=== PATIENT | female | born 1980 | race African-American/Black ===

== ENCOUNTER 2017-03-30 07:25 | Inpatient (IN) ==
--- NOTE | 2017-03-27 20:22 | Discharge Summary ---
<Anabell Singh - Last Filed: 03/27/17 20:20> Date of Encounter: 03/27/17 - Discharge Diagnosis (1) Arthritis of knee, right Priority: Primary Status: Acute (2) Chronic pain Priority: Secondary Status: Chronic Comments: Continue Suboxone. Qualifiers: Chronic pain type: other chronic pain (3) Asthma Priority: Secondary Status: Chronic - Discharge Medications Home Medications: Albuterol Sulfate [Albuterol Inhaler] 1 puff IH QID PRN #1 puff 12/12/15 [Rx] Albuterol Neb [Proventil Neb] 2.5 mg IH TID PRN 10/14/16 [History] Buprenorphine HCl/Naloxone HCl [Suboxone 8 mg-2 mg Sl Film] 1 each SL BID [History] Etonogestrel [Nexplanon] 68 mg SQ ONCE 10/14/16 [History] Aspirin Enteric Coated [Aspirin EC] 325 mg PO DAILY #21 tablet. 03/27/17 [Rx] Meloxicam [Mobic] 15 mg PO DAILY #30 tablet 03/27/17 [Rx] Allergies/Adverse Reactions: Allergies No Known Allergies Allergy (Verified 03/30/17 08:22) Primary care physician: PCP NO - Patient Status Disposition: Home, Self-Care Condition: Good - Discharge Instructions Follow Up With: ROSMERY,PCP [Primary Care Provider] - Additional Instructions: Follow-up appointments: If there is not an appointment listed below, please call your physician and schedule a follow-up appointment. If you have congestive heart failure and your symptoms return, make an appointment with your physician. Medication List: Carry an up to date list of medications you are taking at all time. We have given you an updated medication list including any new medications that you have been prescribed. Please provide that list to your primary provider Symptoms: If your condition changes or you experience any of the following symptoms, notify your physician immediately: Unusual or worsening pain, fever, persistent nausea and vomiting, bleeding, increase in swelling (especially in your legs), sudden weight gain, extreme dizziness, chest pain, increased drainage or redness from a wound or incision. Go to the emergency department if you experience a problem with breathing. Weights: If you have a history of swelling or shortness of breath, weigh yourself daily and notify your physician if you have a weight gain of two or more pounds in one day or 5 or more pounds in a week. If you experience any of the warning signs for stroke: Sudden numbness or weakness of the face, arm or leg; especially on one side of the body, sudden confusion, trouble speaking or understanding, sudden trouble seeing in one or both eyes, sudden trouble walking, dizziness, loss of balance or coordination, sudden sever headache with no cause; Call 911 or go to the emergency room. Stroke is a medical emergency. Some risk factors for stroke: Age, cigarette smoking, diabetes, excessive alcohol consumption, family history , high blood pressure, overweight, physical inactivity, prior stroke, heart attack, diagnosis of carotid artery stenosis or other artery disease. If you smoke, STOP: Smoking or tobacco use significantly increases your risk of heart and lung disease. Your chance of disease greatly increases if you continue to smoke. For more information, call the [place] quit line for smoking cessation 6-- QUIT-NOW ( ) - Hospital Course Hospital course: Ms. Echeverria is a 37 year old female - Time Spent with Patient Total time spent providing and/or coordinating discharge services: <Ubaldo Blanco - Last Filed: 03/31/17 08:08> Date of Encounter: 03/31/17 Time of Encounter: 08:07 - Discharge Diagnosis (1) Arthritis of knee, right Priority: Primary Status: Acute (2) Chronic pain Priority: Secondary Status: Chronic Qualifiers: Chronic pain type: other chronic pain Qualified Code(s): G89.29 - Other chronic pain (3) Asthma Priority: Secondary Status: Chronic Qualifiers: Asthma severity: unspecified severity Asthma complication type: uncomplicated Primary care physician: PCP NO - Patient Status Functional capacity at discharge: uses cane/walker Overall status at discharge: patient is progressing back to baseline - Hospital Course Hospital course: Ms. Echeverria is a 37 year old female The patient had an uneventful postoperative course. They received antibiotics and physical therapy and were discharged in stable condition. There will follow -up in the office in 2 weeks. Aspirin DVT prophylaxis - Time Spent with Patient Total time spent providing and/or coordinating discharge services:
--- NOTE | 2017-03-30 08:11 | History & Physical Report ---
Date of Encounter: 03/30/17 Time of Encounter: 08:11 24 Hour HP Update - Instructions Instructions: If the History and Physical is less than 30 days old and was completed prior to A.M. admission and or procedure and has NOT been updated on calendar day of procedure please complete this update prior to performing procedure. - Update Patient reports changes in Medical Condition: No Changes in examination, assessment, or condition: No Changes in Medication: No Preop tests/diagnostics Reviewed: Yes Surgery Remains Indicated: Yes Consent for Planned Operative Procedure(s) Verified: Yes - Pre-Operative Checklist Preoperative Checklist Indicated: No Prophylactic Antibiotic Ordered: Yes Is VTE Prophylaxis Indicated?: Yes
[2017-03-30] MEDS ORDERED: Dexamethasone 4 MG/ML VIAL ONE ×2 (08:27→09:12)
[2017-03-30] MEDS ORDERED: Ondansetron 4 MG/2 ML VIAL ONE (08:27)
[2017-03-30] MEDS ORDERED: *HR* Propofol 200 MG/20 ML VIAL IVP ONE (08:27)
[2017-03-30] MEDS ORDERED: *HR* HYDROmorphone 2 MG/ML SYRINGE ONE (08:27)
[2017-03-30] MEDS ORDERED: *HR* Midazolam HCl 2 MG/2 ML VIAL ONE (08:27)
[2017-03-30] MEDS ORDERED: Lidocaine -MPF 2% 2 ML VIAL ONE (08:27)
[2017-03-30] MEDS ORDERED: *HR* FentaNYL (PF) 100 MCG/2 ML VIAL ONE (08:32)
[2017-03-30] MEDS ORDERED: CeFAZolin Pre 2,000 MG/100 ML 2,000 MG/100 ML BAG IVPB ONE (08:33)
[2017-03-30] MEDS ORDERED: Albuterol 2.5 MG/3 ML NEBULIZER IH ONE (08:33)
[2017-03-30] MEDS ORDERED: Ringers Solution, Lactated 1,000 ML IVC SCH (08:45)
--- NOTE | 2017-03-30 08:48 | Anesthesia Evaluation PreOp ---
Date of Encounter: 03/30/17 Time of Encounter: 08:46 - Past History Planned Operation: R total knee arthoplasty Cardiac History: [place] (when taking cocaine in 2005 - doesn't use cocaine anymore and no stents in his heart) Pulmonary History: Asthma ROLL SKINNER History: Denies Any Significant HX Other Medical History: Hepatic (Hep C in past - patient has cleared infection and she is no longer hep C positive), Other (opioid addiction - no subutex today ) Anesthesia History: No Prior Anesthetic Complications Alcohol Use: none Drug use: cocaine Medications and Allergies Albuterol Sulfate [Albuterol Inhaler] 1 puff IH QID PRN #1 puff 12/12/15 [Rx] Albuterol Neb [Proventil Neb] 2.5 mg IH TID PRN 10/14/16 [History] Buprenorphine HCl/Naloxone HCl [Suboxone 8 mg-2 mg Sl Film] 1 each SL BID [History] Etonogestrel [Nexplanon] 68 mg SQ ONCE 10/14/16 [History] Aspirin Enteric Coated [Aspirin EC] 325 mg PO DAILY #21 tablet. 03/27/17 [Rx] Meloxicam [Mobic] 15 mg PO DAILY #30 tablet 03/27/17 [Rx] Allergies No Known Allergies Allergy (Verified 03/30/17 08:22) - Meds/Allergy Pre-op Review Medications Reviewed: Yes Allergies Reviewed: Yes Beta Blockers on Current Med List: No Anesthesia Results - Labs Laboratory Tests 11/25/14 03/23/17 03/23/17 16:03 08:39 08:39 WBC Hgb Hct Plt Count PT 11.0 INR 1.0 APTT 30.9 Sodium 140 Potassium 3.8 Chloride 105 Carbon Dioxide 27 BUN 13 Creatinine 0.80 Est GFR ( Amer) > 60 Est GFR (Non-Af Amer) > 60 BUN/Creatinine Ratio 16 Serum , Qual Hepatitis C RNA Quant Undetected 03/23/17 03/23/17 08:39 08:39 WBC 4.3 Hgb 11.6 Hct 35.6 Plt Count 211 PT INR APTT Sodium Potassium Chloride Carbon Dioxide BUN Creatinine Est GFR ( Amer) Est GFR (Non-Af Amer) BUN/Creatinine Ratio Serum , Qual Negative Hepatitis C RNA Quant - Imaging EKG: report reviewed, image reviewed Anesthesia Exam Last Vital Signs Temp 98.2 F 03/30/17 08:15 Pulse 81 03/30/17 08:15 Resp 18 03/30/17 08:15 BP 97/65 03/30/17 08:15 Pulse Ox 97 03/30/17 08:15 Weight: 84 kg - HEENT Pupil (Motor): Pupils equal, EOMI Mallampati: III Teeth: Normal Oral Opening: Greater than 3 - ROLL SKINNER LOC: Oriented ROLL SKINNER Motor: Normal RUE, Normal LUE, Normal RLE, Normal LLE, Normal Face - Cardiac Rhythm: Regular Murmur: None - Pulmonary Breath Sounds: bilateral Clear Respiratory Effort: Symmetrical Anesthesia Assess/Plan ASA Score: 2 Modified [place] Scale for Level of Consciousness: Cooperative, oriented, and tranquil Anesthetic Plan: General, Regional Monitoring Plan: Standard Monitors Recovery Plan: PACU
[2017-03-30] MEDS ORDERED: ROPIVACAINE HCL/PF 0.5% 30 ML VIAL ONE (09:11)
[2017-03-30] MEDS ORDERED: Bupivacaine/Clonidine Syringe 1 EACH SYRINGE ONE (09:11)
[2017-03-30] MEDS ORDERED: Ondansetron 4 MG/2 ML VIAL IVP PRN ×2 (09:38→11:50)
[2017-03-30] MEDS ORDERED: Naloxone 0.4 MG/ML INJ IVP PRN ×2 (09:38→11:50)
[2017-03-30] MEDS ORDERED: *HR* Meperidine 25 MG/ML SYRINGE IVP PRN (09:38)
[2017-03-30] MEDS ORDERED: *HR* Promethazine 25 MG/ML VIAL IVP PRN (09:38)
--- NOTE | 2017-03-30 09:42 | Anesthesia Procedures ---
Date of Encounter: 03/30/17 Time of Encounter: 09:30 Procedures: Anesthesia - Nerve Block Procedure Date: 03/30/17 Time: 09:30 Allergies/Adv Reactions: Allergies Allergy/AdvReac Type Severity Reaction Status Date / Time No Known Allergies Allergy Verified 03/30/17 08:22 Pre-op Diagnosis: Right Knee arthritis Surgical Procedure: Right TKA Checklist: Correct Patient Identifier, Correct procedure, History checked Correct side: Right Blood Thinner: No Monitor Applied: EKG, BP, Pulse Oximetry Supplemental Oxygen via Nasal Cannula (L/min): 2 Sedation: Versed (mg): 2 Sedation: Fentanyl (mcg): 100 Indication: Post Op Analgesia Pre-op Neuro Deficits: No Block Type: Femoral, Other (Posterior Compartment) Catheter placed: No Sterile Technique: Yes Ultrasound used: Yes Anatomy identified: Yes Visual spread of Local: Yes Neuro Stimulation: Yes Nerve Stimulator Range: 0.2 - 0.4 mA Blood on Needle Aspiration: No Smooth Injection of Local: Yes Pain with Injection of Local: No Prep: Chlorhexadine Needle: 22 x 50 mm Stimuplex (Femoral), 21 x 100 mm Stimuplex (Posterior Compartment) Local: 0.25% Bupivicaine w/Clonidine 20 mcg/cc (20mL Posterior), Ropivacaine ( 0.5% 30mL with Decadron 8mg Femoral) Volume (cc): 50 Number of Attempts: 1 Complications: None/effective block Vitals: VSS throughout. See nursing documentation. Comments: Verbal order Dr Blanco for post op pain management. Patient tolerated procedure well.
--- NOTE | 2017-03-30 10:34 | Orthopedic Operative Note ---
Date of procedure: 03/30/17 Pre-op diagnosis: Right knee arthritis Post-op diagnosis: same Procedure: Procedure: Right Total knee replacement Estimated blood loss: 200 cc Hardware: Metal and polyethylene replacement. Arthrex Femur: 4 Tibia: 4 PS insert: 14 Patella: 34 Exam Under anesthesia: Full flexion and extension no instability Procedural Notes: Grade 4 arthritic changes medial compartment grade 3 arthritic changes patellofemoral joint. Operative procedure: The patient was brought to the operating room and placed on the operating room table. After general anesthesia was administered the operative knee was examined. Findings were noted in the exam under anesthesia. The operative extremity was prepped and draped in sterile surgical fashion. The patient received IV antibiotics prior to skin incision. A standard midline incision was made centered over the patella. The incision was made through the skin and subcutaneous tissue. A medial parapatellar tendon approach was performed. Care was taken to preserve tissue along the medial aspect of the patella. And to protect the patella tendon. The deep MCL was released off the medial tibia. The infra patella fat pad was excised. Knee was brought into flexion. Patient noted to have grade 4 arthritic changes medial compartment grade 3 arthritic changes patellofemoral joint. The entry hole was made for the intramedullary femoral guide. The guide was seated in 6 degrees of valgus. Anterior cut was made followed by the distal cut. The ACL the PCL the medial and the lateral menisci were excised. The tibia was subluxed forward. The entry hole was made for the intramedullary tibial guide. Guide was seated to resect 2 mm off the more abnormal side. The knee was brought into flexion the distal femur was sized to a 4. The femoral guide was seated, the anterior cut was made followed by the posterior condylar cut, followed by the chamfer cuts. The finishing guide was seated the box cut was made and the lug holes were drilled. The tibia was sized to a 4, the tibial tray was seated and prepared with the large drill followed by the fin cutter. Trial reduction revealed full extension no varus valgus instability with the appropriate 14 PS Trixie. The patella was everted and cut was made at the level of the insertion of the quadriceps and patella tendon. The patella was sized to a 34 the guide was seated and the lug holes are drilled. Trial reduction revealed excellent patella tracking. All trial components were removed all bony surfaces were irrigated. The tibia was cemented first followed by the femur. The 14 PS Trixie was seated and the knee was brought into full extension. The patella was cemented and held in place with the patellar holding clamp. After the cement had hardened, the knee sat for 2 minutes with a Betadine saline solution. The knee was then irrigated out with 2 L of pulse irrigation. The extensor mechanism was closed with #2 FiberWire suture and #2 PDS suture. The subcutaneous tissue was then irrigated and closed deep with #1 PDS suture superficially with 0 PDS suture and skin was closed with skin candi. The patient was then placed in a sterile dressing and a postoperative brace extubated and transferred to recovery room in stable condition. Anesthesia: AMALIA Surgeon: Ubaldo Blanco [employer] Counter Clerk: Anabell Singh Condition: stable Disposition: PACU
[2017-03-30] MEDS ORDERED: Ketorolac 30 MG/ML VIAL ONE (11:03)
[2017-03-30] MEDS: *HR* HYDROmorphone (PF) 1 MG/ML SYRINGE IVP PRN ×2 (11:06→11:11)
[2017-03-30 11:39] LABS: Hematocrit 33.1 % (35.3-44.9); Hemoglobin 10.6 g/dL (11.5-15.4)
[2017-03-30] MEDS ORDERED: Sennosides 8.6 MG TABLET PO PRN (11:50)
[2017-03-30] MEDS ORDERED: ETONOGESTREL 68 MG SQ SCH (11:50)
[2017-03-30] MEDS ORDERED: MOM Conc 10 ML UD.LIQ PO PRN (11:50)
[2017-03-30] MEDS ORDERED: Temazepam 15 MG CAPSULE PO PRN (11:50)
[2017-03-30] MEDS ORDERED: Albuterol 2.5 MG/3 ML NEBULIZER IH PRN (11:50)
[2017-03-30] MEDS: Ketorolac 30 MG/ML VIAL IVP PRN ×2 (12:15→20:08)
--- NOTE | 2017-03-30 12:20 | Anesthesia Evaluation Post Op ---
Date of Encounter: 03/30/17 Time of Encounter: 12:10 - Vital Signs Vital Signs: Last Vital Signs Temp 98.4 F 03/30/17 12:08 Pulse 64 03/30/17 12:08 Resp 14 03/30/17 12:08 BP 138/94 03/30/17 12:08 Pulse Ox 99 03/30/17 12:08 - Lungs Lungs: Clear Ascult./Percussion - Airway Airway: Non-obstructed - Cardiovascular Regular Rate - Mental Status Mental Status: Alert & Oriented, Answers Appropriately - Pain Pain Scale: 5 - Nausea Vomiting Nausea Vomiting: Not Present - Hydration Hydration: NPO - Discharge PostOp Status: Transfer Patient to floor
[2017-03-30] MEDS: (Buprenorphine Hcl/Naloxone Hcl [Suboxone 8 Mg-2 Mg SL) SL SCH ×2 (12:23→21:08)
[2017-03-30] MEDS: Acetaminophen IV 1,000 MG/100 ML INFUS..BTL IVPB SCH ×2 (12:37→17:50)
[2017-03-30] MEDS: ceFAZolin 2,000 MG in D5% in Water 100 ML IVPB SCH (16:23)
[2017-03-30] MEDS: *HR* Enoxaparin 30 MG/0.3 ML SYRINGE SQ SCH (17:50)
[2017-03-30] MEDS ORDERED: *HR* Enoxaparin 30 MG/0.3 ML SYRINGE SQ SCH (18:00)
[2017-03-30] MEDS: Ringers Solution, Lactated 1,000 ML IVC SCH (21:01)
[2017-03-31] MEDS: Acetaminophen IV 1,000 MG/100 ML INFUS..BTL IVPB SCH ×3 (00:20→12:13)
[2017-03-31] MEDS: ceFAZolin 2,000 MG in D5% in Water 100 ML IVPB SCH (00:23)
[2017-03-31] MEDS: Ketorolac 30 MG/ML VIAL IVP PRN (02:18)
[2017-03-31 05:05] LABS: Hematocrit 31.7 % (35.3-44.9); Hemoglobin 10.9 g/dL (11.5-15.4)
[2017-03-31 05:09] LABS: BUN/Creatinine Ratio 12 (6-26); Blood Urea Nitrogen 8 mg/dL (7-20); Calcium 8.7 mg/dL (8.6-10.8); Carbon Dioxide 22 mEq/L (19-29); Chloride 106 mEq/L (98-109); Glucose 125 mg/dL (70-99); Osmolality,Calculated 286 (280-300); Potassium 4.1 mEq/L (3.5-4.5); Sodium 138 mEq/L (136-145); eGFR For African Americans > 60 (> 60); eGFR For Non-African Americans > 60 (> 60)
[2017-03-31] MEDS: *HR* Enoxaparin 30 MG/0.3 ML SYRINGE SQ SCH (05:29)
--- NOTE | 2017-03-31 08:06 | Orthopedics Progress Note ---
Date of Encounter: 03/31/17 Time of Encounter: 08:05 - Assessment and Plan (1) Arthritis of knee, right Current Visit: No Status: Acute (2) Chronic pain Current Visit: No Status: Chronic Qualifiers: Chronic pain type: other chronic pain Qualified Code(s): G89.29 - Other chronic pain (3) Asthma Current Visit: No Status: Chronic Qualifiers: Asthma severity: unspecified severity Asthma complication type: uncomplicated Qualified Code(s): J45.909 - Unspecified asthma, uncomplicated Subjective Interval history: Patient was seen this morning doing well without complaints. Afebrile vital signs stable. Operative extremity: Neurovascularly intact Dressing clean dry and intact Calves nontender Assessment and plan: Continue with postoperative care Hematocrit 31 discharged today Objective Vital signs: Vital Signs Temp Pulse Resp BP Pulse Ox 03/31/17 07:18 98.7 F 60 14 131/67 98 03/31/17 04:27 99.0 F 66 16 129/79 96 03/31/17 00:14 99.0 F 69 16 109/75 98 03/30/17 20:28 99.0 F 66 18 135/81 96 03/30/17 14:53 98.3 F 99 12 128/78 98 03/30/17 13:47 97.9 F 71 14 118/79 95 03/30/17 12:44 98.0 F 62 14 131/87 98 03/30/17 12:08 98.4 F 64 14 138/94 99 03/30/17 11:51 98 03/30/17 11:50 98.1 F 62 12 126/83 98 03/30/17 11:31 64 16 129/86 98 03/30/17 11:20 60 18 136/78 99 03/30/17 11:10 60 18 116/72 96 03/30/17 11:00 97.8 F 77 18 118/79 100 03/30/17 09:20 89 110/66 97 03/30/17 08:58 98.2 F 81 18 97/65 97 03/30/17 08:15 98.2 F 81 18 97/65 97 Intake and Output 03/30/17 03/31/17 03/31/17 23:59 07:59 15:59 Intake Total 200 / 200 200 / 200 Output Total 575 / 575 Balance 200 / 200 -375 / -375 Intake: IV Fluids 200 / 200 200 / 200 Lactated Ringers 1,000 ML 0 / 0 @ 75 mls/hr IVC .[id number] MONIKA Rx#:[id number] Ofirmev 1,000 mg/100 ml 1 100 / 100 200 / 200 ,000 mg In 100 ml @ 400 mls/hr IVPB Q6H MONIKA Rx#: [id number] Ancef 2,000 MG In 100 / 100 Dextrose 5% 100 ML @ 200 mls/hr IVPB Q8HR MONIKA Rx#: [id number] Output: Urine 575 / 575 Other: # Voids 2 - Labs CBC & BMP: 03/31/17 04:48 03/31/17 04:48 Labs: Abnormal lab results Hgb 10.9 g/dL (11.5-15.4) L 03/31/17 04:48 Hct 31.7 % (35.3-44.9) L 03/31/17 04:48 Glucose 125 mg/dL (70-99) H 03/31/17 04:48 - VTE Documentation of Mechanical Device: Venous foot pump, device Consult Discharge Plan - Plan Additional Instructions: Follow-up appointments: If there is not an appointment listed below, please call your physician and schedule a follow-up appointment. If you have congestive heart failure and your symptoms return, make an appointment with your physician. Medication List: Carry an up to date list of medications you are taking at all time. We have given you an updated medication list including any new medications that you have been prescribed. Please provide that list to your primary provider Symptoms: If your condition changes or you experience any of the following symptoms, notify your physician immediately: Unusual or worsening pain, fever, persistent nausea and vomiting, bleeding, increase in swelling (especially in your legs), sudden weight gain, extreme dizziness, chest pain, increased drainage or redness from a wound or incision. Go to the emergency department if you experience a problem with breathing. Weights: If you have a history of swelling or shortness of breath, weigh yourself daily and notify your physician if you have a weight gain of two or more pounds in one day or 5 or more pounds in a week. If you experience any of the warning signs for stroke: Sudden numbness or weakness of the face, arm or leg; especially on one side of the body, sudden confusion, trouble speaking or understanding, sudden trouble seeing in one or both eyes, sudden trouble walking, dizziness, loss of balance or coordination, sudden sever headache with no cause; Call 911 or go to the emergency room. Stroke is a medical emergency. Some risk factors for stroke: Age, cigarette smoking, diabetes, excessive alcohol consumption, family history , high blood pressure, overweight, physical inactivity, prior stroke, heart attack, diagnosis of carotid artery stenosis or other artery disease. If you smoke, STOP: Smoking or tobacco use significantly increases your risk of heart and lung disease. Your chance of disease greatly increases if you continue to smoke. For more information, call the [place] tobacco quit line for smoking cessation QUIT-NOW ( ) Referrals: NO,PCP [Primary Care Provider] -
[2017-03-31] MEDS: (Buprenorphine Hcl/Naloxone Hcl [Suboxone 8 Mg-2 Mg SL) SL SCH (08:29)
[2017-03-31] MEDS: Ringers Solution, Lactated 1,000 ML IVC SCH (08:31)
[2017-03-31] MEDS ORDERED: Acetaminophen 325 MG TABLET PO PRN (09:04)
[2017-03-31 11:49] VITALS: BP 154/67
== END 2017-03-31 12:51 | disposition home or self-care (01) | DRG 302 ==
LOC: SAMDAY 07:25 → 3NENU 11:48
PROVIDERS: ADMIT Orthopaedic Surgery; ATTEND Orthopaedic Surgery

== ENCOUNTER 2017-09-03 07:24 | Observation (INO) ==
[2017-09-03] MEDS ORDERED: Ketorolac 15 MG/ML VIAL IVP ONE (08:11)
[2017-09-03] MEDS ORDERED: 0.9 % Sodium Chloride 1,000 ML IVC ONE (08:11)
--- NOTE | 2017-09-03 08:13 | Emergency Department Note ---
Disposition Clinical Impression: Cellulitis, Abscess, Knee effusion Disposition: Admitted As Inpatient Condition: Good General Adult HPI - General Chief complaint: ED Extremity Problem,Nontraumatic Stated complaint: Right Knee problem Time Seen by Provider: 09/03/17 07:36 Source: patient Limitations: no limitations Nursing Notes Reviewed: Yes Vital Signs Reviewed: Yes - History of Present Illness Pain Scale: 10 - Related Data Home Medications Medication Instructions Recorded Confirmed Buprenorphine HCl/Naloxone HCl 1.5 film SL DAILY 10/14/16 09/03/17 [Suboxone 8 mg-2 mg Sl Film] Gabapentin [Neurontin] 600 mg PO TID 09/03/17 09/03/17 Naproxen Sodium [Aleve] 440 mg PO BID 09/03/17 09/03/17 Previous Rx's Medication Instructions Recorded Meloxicam [Mobic] 15 mg PO DAILY #30 tablet 03/27/17 Allergies Allergy/AdvReac Type Severity Reaction Status Date / Time No Known Allergies Allergy Verified 09/03/17 07:39 Past Medical History - Past Medical History Medical history: Reports: asthma, myocardial infarction Psychiatric history: Reports: no psych history - Social History Smoking Status: Never smoker Smokeless Tobacco Status: No Alcohol use: Reports: none Drug use: Reports: other Physical Exam - General Limitations: no limitations General appearance: alert, in no apparent distress Course Vital Signs Temperature 97.7 F 09/03/17 07:33 Pulse Rate 85 09/03/17 07:33 Respiratory Rate 18 09/03/17 07:33 Blood Pressure 127/70 09/03/17 07:33 O2 Sat by Pulse Oximetry 95 09/03/17 07:33 Temperature 97.6 F 09/03/17 12:29 Pulse Rate 77 09/03/17 12:29 Respiratory Rate 18 09/03/17 12:29 Blood Pressure 103/73 09/03/17 12:29 O2 Sat by Pulse Oximetry 97 09/03/17 12:29 Oxygen Delivery Oxygen Delivery Room Air Medical Decision Making - MDM Narrative Medical decision making narrative: I examined this patient and my medical decision-making was reviewed with the Resident Physician. I agree with the documented findings, disposition and treatment plan as described except to the extent set forth below. Patient was seen and evaluated by myself and Dr. Rodriguez, I agree with his evaluation and management plan, supervised the care of the patient's stay. Patient has pain in her right knee she had a replacement on this done in March that went well this was done by Dr. Blanco here. Now there is a warm and tender. She is former IV drug user. Is now on Suboxone. Worried that this area could be a cellulitis or the joint itself could be infected were going to get x-rays lab work and then we will speak with Dr. Blanco. She is in agreement with plan. Knee X-Ray 09/03/17 08:00 IMPRESSION: Right total knee arthroplasty without acute osseous abnormality. Small joint effusion and mild subcutaneous edema, nonspecific. D/ / Funmilayo Rosales MD / Funmilayo Rosales MD Interpreting Provider: Funmilayo Rosales MD Knee X-Ray 09/03/17 08:00 IMPRESSION: Right total knee arthroplasty without acute osseous abnormality. Small joint effusion and mild subcutaneous edema, nonspecific. D/ / Funmilayo Rosales MD / Funmilayo Rosales MD Interpreting Provider: Funmilayo Rosales MD Knee CT 09/03/17 08:59 IMPRESSION: Knee arthroplasty with moderate suprapatellar effusion. Infection of suprapatellar effusion cannot be determined by imaging alone. Subcutaneous soft tissue edema of the anterior knee extending to proximal anterior calf, nonspecific though this is compatible with cellulitis in the appropriate clinical setting. To a lesser degree there is also subcutaneous soft tissue edema of the posterior knee and posterior calf. 2 loculated fluid collections deep to the superficial muscular fascia in the medial calf, potentially a communication, the largest measuring up to 3.6 cm. These are concerning for possible abscess. D/ / 09/03/2017 10:14:33 Errol Morgan MD / jose Interpreting Provider: Errol Morgan MD 1000 hrs.: Spoke with orthopedics and they recommend bringing her in to the medicine service and they will consult and IV antibiotics are started. She is in agreement with plan. - Lab Data Result diagrams: 09/03/17 08:35 09/03/17 08:35 Lab Results 09/03/17 09/03/17 09/03/17 Range/Units 08:35 08:35 08:35 WBC 5.1 (4.3-11.1) K/mcL RBC 4.70 (3.82-4.97) M/mcL Hgb 13.1 (11.5-15.4) g/dL Hct 39.3 (35.3-44.9) % MCV 83.6 (83.0-100.0) fL MCH 27.9 L (28.0-33.3) pg MCHC 33.3 (31.6-35.5) g/dL RDW 13.2 (11.5-14.5) % Plt Count 255 (140-400) K/mcL MPV 9.9 (9.4-12.4) fL Immature Gran % 0.2 (0-4) % Seg Neutrophils % 49.5 % Lymphocytes % 42.2 % Monocytes % 4.7 % Eosinophils % 2.4 % Basophils % 1.0 % Neutrophils # 2.5 (1.6-8.9) K/mcL Lymphocytes # 2.2 (0.6-4.6) K/mcL Monocytes # 0.2 (0.0-1.3) K/mcL Eosinophils # 0.1 (0.0-0.6) K/mcL Basophils # 0.1 (0.0-0.2) K/mcL ESR 25 H (0-15) mm/hr Sodium 140 (136-145) mEq/L Potassium 3.4 L (3.5-4.5) mEq/L Chloride 101 (98-109) mEq/L Carbon Dioxide 30 H (19-29) mEq/L BUN 12 (7-20) mg/dL Creatinine 0.77 (0.57-1.11) mg/dL Est GFR ( Amer) > 60 (> 60) Est GFR (Non-Af Amer) > 60 (> 60) BUN/Creatinine Ratio 16 (6-26) Glucose 75 (70-99) mg/dL Calculated Osmolality 288 (280-300) Calcium 9.8 (8.6-10.8) mg/dL C-Reactive Protein 5 H (Less than 5) mg/L Urine Color (Yellow) Urine Clarity (Clear) Urine pH (5.0-8.0) pH Units Ur Specific Grimes (1.010-1.025) Urine Protein (Neg-Trace) mg/dL Urine Glucose (UA) (Normal) mg/dL Urine Ketones (Negative) mg/dL Urine Blood (Negative) Urine Nitrite (Negative) Urine Bilirubin (Negative) Urine Urobilinogen (Normal) mg/dL Ur Leukocyte Esterase (Negative) Ur Culture Indicated? (NO) Urine Opiates Screen (Sbgjbm=991) ng/mL Ur Barbiturates Screen (Tpxtuu=186) ng/mL Ur Phencyclidine Scrn (Cutoff=25) ng/mL Ur Amphetamines Screen (Pgmfsn=2365) ng/mL U Benzodiazepines Scrn (Xrlnvv=642) ng/mL Urine Cocaine Screen (Cutoff= 300) ng/mL U Marijuana (THC) Screen (Cutoff = 50) ng/mL 09/03/17 09/03/17 Range/Units 10:30 10:30 WBC (4.3-11.1) K/mcL RBC (3.82-4.97) M/mcL Hgb (11.5-15.4) g/dL Hct (35.3-44.9) % MCV (83.0-100.0) fL MCH (28.0-33.3) pg MCHC (31.6-35.5) g/dL RDW (11.5-14.5) % Plt Count (140-400) K/mcL MPV (9.4-12.4) fL Immature Gran % (0-4) % Seg Neutrophils % % Lymphocytes % % Monocytes % % Eosinophils % % Basophils % % Neutrophils # (1.6-8.9) K/mcL Lymphocytes # (0.6-4.6) K/mcL Monocytes # (0.0-1.3) K/mcL Eosinophils # (0.0-0.6) K/mcL Basophils # (0.0-0.2) K/mcL ESR (0-15) mm/hr Sodium (136-145) mEq/L Potassium (3.5-4.5) mEq/L Chloride (98-109) mEq/L Carbon Dioxide (19-29) mEq/L BUN (7-20) mg/dL Creatinine (0.57-1.11) mg/dL Est GFR ( Amer) (> 60) Est GFR (Non-Af Amer) (> 60) BUN/Creatinine Ratio (6-26) Glucose (70-99) mg/dL Calculated Osmolality (280-300) Calcium (8.6-10.8) mg/dL C-Reactive Protein (Less than 5) mg/L Urine Color Yellow (Yellow) Urine Clarity Clear (Clear) Urine pH 7.5 (5.0-8.0) pH Units Ur Specific Grimes > 1.030 H (1.010-1.025) Urine Protein Negative (Neg-Trace) mg/dL Urine Glucose (UA) Normal (Normal) mg/dL Urine Ketones Negative (Negative) mg/dL Urine Blood Negative (Negative) Urine Nitrite Negative (Negative) Urine Bilirubin Negative (Negative) Urine Urobilinogen Normal (Normal) mg/dL Ur Leukocyte Esterase Negative (Negative) Ur Culture Indicated? NO (NO) Urine Opiates Screen Negative (Rxzjmu=849) ng/mL Ur Barbiturates Screen Negative (Xkryaf=630) ng/mL Ur Phencyclidine Scrn Negative (Cutoff=25) ng/mL Ur Amphetamines Screen Negative (Pnffyf=7307) ng/mL U Benzodiazepines Scrn Negative (Drryma=726) ng/mL Urine Cocaine Screen Negative (Cutoff= 300) ng/mL U Marijuana (THC) Screen Negative (Cutoff = 50) ng/mL
[2017-09-03 08:49] LABS: Basophils # 0.1 K/mcL (0.0-0.2); Eosinophils # 0.1 K/mcL (0.0-0.6); Eosinophils % 2.4 %; Hematocrit 39.3 % (35.3-44.9); Hemoglobin 13.1 g/dL (11.5-15.4); Immature Granulocytes % 0.2 % (0-4); Lymphocytes # 2.2 K/mcL (0.6-4.6); Lymphocytes % 42.2 %; Mean Corpuscular HGB Conc 33.3 g/dL (31.6-35.5); Mean Corpuscular Hemoglobin 27.9 pg (28.0-33.3); Mean Corpuscular Volume 83.6 fL (83.0-100.0); Mean Platelet Volume 9.9 fL (9.4-12.4); Monocytes # 0.2 K/mcL (0.0-1.3); Monocytes % 4.7 %; Neutrophils # 2.5 K/mcL (1.6-8.9); Platelet Count 255 K/mcL (140-400); Red Cell Distribution Width 13.2 % (11.5-14.5); Segmented Neutrophils % 49.5 %
[2017-09-03 08:58] LABS: BUN/Creatinine Ratio 16 (6-26); Blood Urea Nitrogen 12 mg/dL (7-20); C-Reactive Protein 5 mg/L (Less than 5); Calcium 9.8 mg/dL (8.6-10.8); Carbon Dioxide 30 mEq/L (19-29); Chloride 101 mEq/L (98-109); Glucose 75 mg/dL (70-99); Osmolality,Calculated 288 (280-300); Potassium 3.4 mEq/L (3.5-4.5); Sodium 140 mEq/L (136-145); eGFR For African Americans > 60 (> 60); eGFR For Non-African Americans > 60 (> 60)
[2017-09-03] MEDS ORDERED: Piperacillin/Tazobactam 4.5 GM in D5% in Water (Mini-Bag+) 100 ML IVPB ONE (10:20)
[2017-09-03] MEDS ORDERED: Vancomycin 1,500 MG in D5% in Water 250 ML IVPB ONE (10:20)
--- NOTE | 2017-09-03 10:36 | Emergency Department Note ---
Disposition Clinical Impression: Abscess Cellulitis Qualifiers: Site of cellulitis of extremity: lower extremity Laterality: right Knee effusion Qualifiers: Laterality: right Qualified Code(s): M25.461 - Effusion, right knee Disposition: Admitted As Inpatient Condition: Good Referrals: NONE,PCP [Primary Care Provider] - Forms: ED Satisfaction Letter Time of Disposition: 10:37 Extremity Problem HPI - General Chief complaint: ED Extremity Problem,Nontraumatic Stated complaint: Right Knee problem Time Seen by Provider: 09/03/17 07:36 Source: patient Mode of arrival: ambulatory Limitations: no limitations Nursing Notes Reviewed: Yes Vital Signs Reviewed: Yes - History of Present Illness HPI Narrative: Patient presenting to the ED with a 2 day history of right knee pain. Patient had a right total knee arthroplasty in March of this year. Performed by Dr. Blanco. Has healed well since. States that the knee is hot and swollen with decreased range of motion. No fever, chest pain, shortness of breath, or other issues. Previous IV drug user with last use about a year ago. Denies any numbness, tingling or trauma. Pain Scale: 10 - Related Data Home Medications Medication Instructions Recorded Confirmed Albuterol Neb [Proventil Neb] 2.5 mg IH TID PRN 10/14/16 03/30/17 Buprenorphine HCl/Naloxone HCl 1 each SL BID 10/14/16 03/30/17 [Suboxone 8 mg-2 mg Sl Film] Etonogestrel [Nexplanon] 68 mg SQ ONCE 10/14/16 03/30/17 Previous Rx's Medication Instructions Recorded Albuterol Sulfate [Albuterol 1 puff IH QID PRN #1 puff 12/12/15 Inhaler] Aspirin Enteric Coated [Aspirin EC] 325 mg PO DAILY #21 tablet. 03/27/17 Meloxicam [Mobic] 15 mg PO DAILY #30 tablet 03/27/17 Allergies Allergy/AdvReac Type Severity Reaction Status Date / Time No Known Allergies Allergy Verified 09/03/17 07:39 All systems ED: reviewed and negative except as stated. Constitutional: Denies: fever Cardiovascular: Denies: chest pain Respiratory: Denies: dyspnea Gastrointestinal: Denies: vomiting Musculoskeletal: Reports: as per HPI Integumentary: Reports: as per HPI Past Medical History - Past Medical History Attestation: Yes The following information was validated with the patient. Source: patient Medical history: Reports: asthma, myocardial infarction Psychiatric history: Reports: no psych history - Social History Smoking Status: Never smoker Smokeless Tobacco Status: No Alcohol use: Reports: none Drug use: Reports: other Physical Exam - General Limitations: no limitations General appearance: alert, in no apparent distress - Neck Neck exam: Present: normal inspection, full ROM, trachea midline - Chest Chest inspection: Present: normal inspection, symmetric chest wall rise - Respiratory Respiratory exam: Present: normal lung sounds bilaterally - Cardiovascular Cardiovascular exam: Present: regular rate, normal rhythm, normal heart sounds - Abdominal Exam Abdominal exam: Present: soft, Non-Tender. Absent: tenderness, distention, guarding, rebound, rigidity - Expanded Lower Extremity Exam Hip/Pelvis exam: Present: normal inspection, full ROM Upper leg exam: Present: normal inspection, full ROM Knee exam: Present: tenderness, swelling, erythema (Mild), effusion, knee extension intact, other (Warmth to R). Absent: full ROM (Decreased range of motion on the right, patient cannot flex the knee past 90 degrees) Lower leg exam: Present: normal inspection, full ROM Ankle exam: Present: normal inspection, full ROM Foot/toe exam: Present: normal inspection, full ROM Neurovascular/Tendon exam: Present: normal capillary refill Gait: antalgic - Neurological Exam Neurological exam: Present: alert, oriented X3 - Psychiatric Psychiatric exam: Present: normal affect, normal mood - Skin Skin exam: Present: warm, dry, intact, erythema (2. Right knee). Absent: normal color Course Course Narrative: 37-year-old female previous IV drug user with last use about a year ago presenting with right knee cellulitis. Has a total knee arthroplasty. There has of March. Concern over cellulitis versus hardware infection. We will check labs and likely CT. We will consult ortho - Consultations Consultation #1: Spoke with on-call orthopedic surgeon who did her knee replacement, Dr. Blanco. Did not recommend aspiration at this time. Recommended admission for IV antibiotics and he will see her in the morning. Time: 10:33 Vital Signs Temperature 97.7 F 09/03/17 07:33 Pulse Rate 85 09/03/17 07:33 Respiratory Rate 18 09/03/17 07:33 Blood Pressure 127/70 09/03/17 07:33 O2 Sat by Pulse Oximetry 95 09/03/17 07:33 Temperature 98 F 09/03/17 09:39 Pulse Rate 77 09/03/17 09:39 Respiratory Rate 14 09/03/17 09:39 Blood Pressure 123/86 09/03/17 09:39 O2 Sat by Pulse Oximetry 98 09/03/17 09:39 Oxygen Delivery Oxygen Delivery Room Air Extremity Problem, Nontraumati - Lab Data Result diagrams: 09/03/17 08:35 09/03/17 08:35 Lab Results 09/03/17 09/03/17 09/03/17 Range/Units 08:35 08:35 08:35 WBC 5.1 (4.3-11.1) K/mcL RBC 4.70 (3.82-4.97) M/mcL Hgb 13.1 (11.5-15.4) g/dL Hct 39.3 (35.3-44.9) % MCV 83.6 (83.0-100.0) fL MCH 27.9 L (28.0-33.3) pg MCHC 33.3 (31.6-35.5) g/dL RDW 13.2 (11.5-14.5) % Plt Count 255 (140-400) K/mcL MPV 9.9 (9.4-12.4) fL Immature Gran % 0.2 (0-4) % Seg Neutrophils % 49.5 % Lymphocytes % 42.2 % Monocytes % 4.7 % Eosinophils % 2.4 % Basophils % 1.0 % Neutrophils # 2.5 (1.6-8.9) K/mcL Lymphocytes # 2.2 (0.6-4.6) K/mcL Monocytes # 0.2 (0.0-1.3) K/mcL Eosinophils # 0.1 (0.0-0.6) K/mcL Basophils # 0.1 (0.0-0.2) K/mcL ESR 25 H (0-15) mm/hr Sodium 140 (136-145) mEq/L Potassium 3.4 L (3.5-4.5) mEq/L Chloride 101 (98-109) mEq/L Carbon Dioxide 30 H (19-29) mEq/L BUN 12 (7-20) mg/dL Creatinine 0.77 (0.57-1.11) mg/dL Est GFR ( Amer) > 60 (> 60) Est GFR (Non-Af Amer) > 60 (> 60) BUN/Creatinine Ratio 16 (6-26) Glucose 75 (70-99) mg/dL Calculated Osmolality 288 (280-300) Calcium 9.8 (8.6-10.8) mg/dL C-Reactive Protein 5 H (Less than 5) mg/L Yanet - Yanet Situation: Demographics, MOA Background: Presenting Complaint, Relevant PMH, Meds, & Allergies Assessment: Vital Signs, Course and respsone to treatment, Exam Concerns, Patient/Family Expectation, Pertinant Lab Results, Outstanding Labs Recommendation: Barrier(s) to disposition, Recommendation based on pending studies, treatments, or consults Yanet Report Given to: Dr. Ibarhima Holt Repor Time: 10:37
[2017-09-03 10:45] LABS: Bilirubin,Urine Negative (Negative); Blood,Urine Negative (Negative); Clarity,Urine Clear (Clear); Color,Urine Yellow (Yellow); Glucose,Urine (UA) Normal (Normal); Ketones,Urine Negative (Negative); Leukocyte Esterase,Urine Negative (Negative); Nitrite,Urine Negative (Negative); PH,Urine 7.5 pH Units (5.0-8.0); Protein,Urine Negative (Neg-Trace); Specific Gravity,Urine > 1.030 (1.010-1.025); Urobilinogen,Urine Normal (Normal)
[2017-09-03 11:04] LABS: Amphetamine Screen,Urine Negative ng/mL (Cutoff=1000); Barbiturate Screen,Urine Negative ng/mL (Cutoff=200); Benzodiazepines Screen,Urine Negative ng/mL (Cutoff=200); Cannabinoid Screen,Urine Negative ng/mL (Cutoff = 50); Cocaine Screen,Urine Negative ng/mL (Cutoff= 300); Opiate Screen,Urine Negative ng/mL (Cutoff=300); Phencyclidine Screen,Urine Negative ng/mL (Cutoff=25)
[2017-09-03] MEDS ORDERED: Naloxone 0.4 MG/ML INJ IVP PRN (11:39)
[2017-09-03] MEDS ORDERED: Ondansetron 4 MG/2 ML VIAL IVP PRN (11:39)
[2017-09-03] MEDS ORDERED: *HR* HYDROcodone/Acet 5/325 mg TABLET PO PRN (11:39)
[2017-09-03] MEDS ORDERED: *HR* Morphine 2 MG/ML SYRINGE IVP PRN (11:39)
[2017-09-03] MEDS ORDERED: Acetaminophen 325 MG TABLET PO PRN (11:39)
[2017-09-03] MEDS ORDERED: Vancomycin 1,500 MG in D5% in Water 250 ML IVPB SCH ×2 (12:00→22:00)
[2017-09-03] MEDS ORDERED: Aminoglycoside Consult 1 EACH MC ONE (13:57)
--- NOTE | 2017-09-03 14:19 | Internal Med History&Physical ---
Date of Encounter: 09/03/17 Time of Encounter: 10:00 Assessment and Plan (1) Cellulitis Current visit: Yes Status: Acute CT of the knee today shows knee arthroplasty with moderate suprapatellar effusion. Infection of suprapatellar effusion cannot be determined by imaging alone. Subcutaneous soft tissue edema of the anterior knee extending to proximal anterior calf, nonspecific though this is compatible with cellulitis in the appropriate clinical setting. To a lesser degree there is also subcutaneous soft tissue edema of the posterior knee and posterior calf. 2 loculated fluid collections deep to the superficial muscular fascia in the medial calf, potentially a communication, the largest measuring up to 3.6 cm. These are concerning for possible abscess. ED spoke with on-call orthopedic surgeon who did her knee replacement, Dr. Blanco. Did not recommend aspiration at this time. IVPB vancomycin with pharmacy dosing and IVPB Zosyn 3.375 gm Q8 for infection coverage. Qualifiers: Site of cellulitis of extremity: lower extremity Laterality: right Qualified Code(s): L03.115 - Cellulitis of right lower limb (2) Knee effusion Current visit: Yes Status: Acute CT of the knee today shows 2 loculated fluid collections deep to the superficial muscular fascia in the medial calf, potentially a communication, the largest measuring up to 3.6 cm. These are concerning for possible abscess. ED spoke with on-call orthopedic surgeon who did her knee replacement, Dr. Blanco. Did not recommend aspiration at this time. IVPB vancomycin with pharmacy dosing and IVPB Zosyn 3.375 gm Q8 for infection coverage. Qualifiers: Laterality: right Qualified Code(s): M25.461 - Effusion, right knee (3) Previous myocardial infarction older than 8 weeks Current visit: Yes Status: Resolved Pt. reports NC at age 22 that was drug-induced. Angioplasty w/o stent placement. EKG ordered in ED. Pt. placed on continuous cardiac telemetry. (4) Asthma Current visit: Yes Status: Chronic Hx of chronic asthma. DuoNebs Q6 PRN. Patient states she is not SOB at this time. 98% on RA. Qualifiers: Asthma severity: unspecified severity Asthma complication type: uncomplicated Qualified Code(s): J45.909 - Unspecified asthma, uncomplicated (5) DVT prophylaxis Current visit: Yes Status: Acute Bilateral SCDs on LEs for DVT prophylaxis d/t possible surgical intervention for suspected abscess identified in imaging. Internal Medicine - H&P: HPI Chief complaint: Right knee pain and swelling Admitted From: Emergency Dept Plans for Post Hospital Care: Home History of present illness: Ms. Echeverria is a 37 year old female with medical history of asthma, drug-induced myocardial infarction at the age of 22 which resulted in heart catheterization with no stent placement, and right total knee arthroplasty in March 2017 presents from the ED with chief complaint of right knee pain and swelling the patient states again several weeks ago while she was in physical therapy but symptoms of erythema, edema, and pain began this week and worsened yesterday. Patient reports she is a previous IV drug user and denies any recent drug use. Patient reports decreased range of motion and pain but denies recent illness, fever, chills, nausea, vomiting, chest pain, palpitations, shortness of breath, abdominal pain, unusual bleeding, changes in vision, numbness, tingling, dizziness, lightheadedness, presyncope, or syncope. Past Med Surg Social Fam HX - Past Medical History Source: patient, old records reviewed Medical history: asthma, myocardial infarction (Age 22 - Drug-induced) Psychiatric history: no psych history - Past Surgical History Surgical History: orthopedic, other (Right knee arthroplasty in March 2017 ) - Social History Smoking Status: Never smoker Smokeless Tobacco Status: No Alcohol use: none Drug use: other (Reports previous hx of IV drug abuse. States she hasn't used in >1 year. Tox screen negative) Occupational status: employed Current living situation: Home Activity Level: Independent ambulation Recent Out of Country Travel Within the Last 8 Weeks: No Exposure or Possible Exposure to Illness During Travel: No - Family History Grandmother Race: Living Status: Hx Family Cardiac Disorders: Yes Hx Family Cancer: Yes (COLON) Hx Family Endocrine Disorder: Yes (DM) Internal Medicine - H&P: Meds Buprenorphine HCl/Naloxone HCl [Suboxone 8 mg-2 mg Sl Film] 1.5 film SL DAILY [History] Meloxicam [Mobic] 15 mg PO DAILY #30 tablet 03/27/17 [Rx] Gabapentin [Neurontin] 600 mg PO TID 09/03/17 [History] Naproxen Sodium [Aleve] 440 mg PO BID 09/03/17 [History] 3 Allergy/AdvReac Type Severity Reaction Status Date / Time No Known Allergies Allergy Verified 09/03/17 07:39 All Systems PM: A 10-system review of systems was performed and is negative for pertinent findings except as documented above in the HPI. - Constitutional Constitutional: as per HPI, no chills, no fever(s), no night sweats - EENT Eyes: no change in vision, no discharge, no pain, no photophobia Ears: no ear discharge, no ear pain, no tinnitus Nose, mouth and throat: no dysphagia, no nasal discharge, no neck pain, no sore throat - Breasts Breasts: as per HPI - Cardiovascular Cardiovascular ROS IM: no chest pain, no diaphoresis, no dyspnea, no lightheadedness, no palpitations, no syncope - Respiratory Respiratory: no cough, no dyspnea, no wheezing, no excessive phlegm production - Gastrointestinal Gastrointestinal: no abdominal pain, no diarrhea, no hematemesis, no hematochezia, no melena, no nausea, no vomiting - Genitourinary Genitourinary: no change in urinary stream, no dysuria, no flank pain, no hematuria Menstruation: as per HPI - Musculoskeletal Musculoskeletal ROS IM: as per HPI, joint swelling, limited range of motion ( Right knee), other (Pain, erythema, and edema of right knee) - Integumentary Integumentary IM: no rash, no unusual bruising - Neurological Neurological ROS: no confusion, no convulsions, no focal weakness, no numbness, no tingling, no tremor(s) - Psychiatric Psychiatric: as per HPI - Endocrine Endocrine IM: as per HPI - Hematologic/Lymphatic Hematologic/Lymphatic: no easy bruising - Allergic/Immunologic Allergic/Immunologic: as per HPI - Constitutional Vitals: Temp Pulse Resp BP Pulse Ox 97.6 F 77 18 103/73 97 09/03/17 12:29 09/03/17 12:29 09/03/17 12:29 09/03/17 12:29 09/03/17 12:29 General appearance: Present: cooperative, A&O X 3, pleasant, no acute distress, obese, answers questions appropriately - Head Head exam: Present: atraumatic, normocephalic - Eye Eye exam: Present: PERRL, conjuntiva pink, sclera anicteric Pupils: Present: PERRL - ENT ENT exam: Present: normal exam, normal external ear exam - Neck Neck exam general surgery: Present: normal inspection, supple, trachea midline. Absent: lymphadenopathy - Respiratory Respiratory exam: Present: CTAB. Absent: accessory muscle use, rales, rhonchi, wheezes - Cardiovascular Cardiovascular exam: Present: RRR, +S1, +S2. Absent: diastolic murmur, gallop, rubs, systolic murmur - GI/Abdominal GI/Abdominal exam: Present: normal bowel sounds, soft, no peritoneal signs. Absent: distended, tenderness - Rectal Rectal exam: Present: deferred - Additional comments: exam deferred. - Extremities Exam Extremities exam: Present: tenderness (Right knee), warm, radial pulses palpable and symmetrical - Expanded Lower Extremities Exam Knee exam: Present: erythema (Right knee), swelling, tenderness, warmth - Back Exam Back exam: Present: normal inspection - Neurological Exam Neurological exam: Present: CN II-XII intact, oriented X3, no focal deficits. Absent: pronater drift, facial droop, speech deficit - Psychiatric Psychiatric exam: Present: normal affect, normal mood - Skin Skin exam: Present: dry, intact Internal Med - H&P Results - Labs CBC & Chem 7: 09/03/17 08:35 09/03/17 08:35 - Diagnostic Studies Other Images Additional comments: Impressions Knee X-Ray 09/03/17 08:00 IMPRESSION: Right total knee arthroplasty without acute osseous abnormality. Small joint effusion and mild subcutaneous edema, nonspecific. D/ / Funmilayo Rosales MD / Funmilayo Rosales MD Interpreting Provider: Funmilayo Rosales MD Knee CT 09/03/17 08:59 IMPRESSION: Knee arthroplasty with moderate suprapatellar effusion. Infection of suprapatellar effusion cannot be determined by imaging alone. Subcutaneous soft tissue edema of the anterior knee extending to proximal anterior calf, nonspecific though this is compatible with cellulitis in the appropriate clinical setting. To a lesser degree there is also subcutaneous soft tissue edema of the posterior knee and posterior calf. 2 loculated fluid collections deep to the superficial muscular fascia in the medial calf, potentially a communication, the largest measuring up to 3.6 cm. These are concerning for possible abscess. D/ / 09/03/2017 10:14:33 Errol Morgan MD / [facility] Interpreting Provider: Errol Morgan MD
[2017-09-03] MEDS ORDERED: Ipratropium/Albuterol Neb 3 ML IH PRN (14:38)
[2017-09-03] MEDS: Gabapentin 300 MG CAPSULE PO SCH ×2 (18:13→21:25)
[2017-09-03] MEDS: Piperacillin/Tazobactam 3.375 GM in D5% in Water (Mini-Bag+) 100 ML IVPB SCH (18:13)
[2017-09-03] MEDS ORDERED: (Buprenorphine Hcl/Naloxone Hcl [Suboxone 8 Mg-2 Mg SL) SL SCH (21:00)
--- NOTE | 2017-09-04 01:15 | Event Note ---
Date of Encounter: 09/04/17 Time of Encounter: 01:15 Patient semisolid with nurse practitioner. Agree with assessment and plan
[2017-09-04] MEDS: Piperacillin/Tazobactam 3.375 GM in D5% in Water (Mini-Bag+) 100 ML IVPB SCH (03:01)
[2017-09-04 05:04] LABS: Basophils % 0.7 %; Eosinophils # 0.1 K/mcL (0.0-0.6); Eosinophils % 4.3 %; Hematocrit 33.8 % (35.3-44.9); Immature Granulocytes % 0.3 % (0-4); Lymphocytes # 1.4 K/mcL (0.6-4.6); Lymphocytes % 45.9 %; Mean Corpuscular HGB Conc 32.2 g/dL (31.6-35.5); Mean Corpuscular Hemoglobin 27.3 pg (28.0-33.3); Mean Corpuscular Volume 84.7 fL (83.0-100.0); Mean Platelet Volume 10.4 fL (9.4-12.4); Monocytes # 0.3 K/mcL (0.0-1.3); Monocytes % 9.2 %; Neutrophils # 1.2 K/mcL (1.6-8.9); Platelet Count 213 K/mcL (140-400); Red Blood Count 3.99 M/mcL (3.82-4.97); Red Cell Distribution Width 13.4 % (11.5-14.5); Segmented Neutrophils % 39.6 %
[2017-09-04 05:15] LABS: Hemoglobin 10.9 g/dL (11.5-15.4)
[2017-09-04 05:28] LABS: Hemoglobin A1C 5.1 %
[2017-09-04 05:40] LABS: Alanine Aminotransferase 8 Units/L (0-55); Alkaline Phosphatase 83 Units/L (38-126); Aspartate Amino Transferase 13 Units/L (5-34); BUN/Creatinine Ratio 17 (6-26); Bilirubin,Total 0.4 mg/dL (0.2-1.2); Blood Urea Nitrogen 12 mg/dL (7-20); C-Reactive Protein 6 mg/L (Less than 5); Calcium 8.6 mg/dL (8.6-10.8); Carbon Dioxide 23 mEq/L (19-29); Chloride 108 mEq/L (98-109); Chol/HDL Ratio 2.9 (0-4.9); Cholesterol 173 mg/dL (< 200); Globulin 3.1 g/dL (2.4-3.5); Glucose 119 mg/dL (70-99); HDL Cholesterol 59 mg/dL (40-59); LDL Cholesterol,Calculated 101 mg/dL (0-99); Osmolality,Calculated 289 (280-300); Potassium 3.8 mEq/L (3.5-4.5); Sodium 139 mEq/L (136-145); Total Protein 6.1 g/dL (6.0-8.3); Triglycerides 66 mg/dL (< 150); eGFR For African Americans > 60 (> 60); eGFR For Non-African Americans > 60 (> 60)
[2017-09-04] MEDS ORDERED: *HR* Enoxaparin 40 MG/0.4 ML SYRINGE SQ SCH (06:00)
--- NOTE | 2017-09-04 07:18 | Orthopedic Consult Note ---
Date of Encounter: 09/04/17 Time of Encounter: 07:16 History of Present Illness HPI: Ms. Echeverria is a 37 year old female Status post left total knee replacement. Patient with an episode of increased pain with bending. Patient came to the ER was admitted for concerns of cellulitis. On exam no swelling no erythema of the left knee pain-free range of motion from 0-90 patient has increased pain when going past 90. Pain is localized to the anterolateral aspect most consistent with scar tissue pinching. Neurovascularly intact. X-rays and CT scan reviewed no findings of significant concern based on a postop ,The patient status post knee replacement Overall benign exam this be worked up as an outpatient recommend discharge, CRP is 6 minimal concern for intra-articular process Past Med Surg Social Fam HX - Past Medical History Medical history: asthma, myocardial infarction Psychiatric history: no psych history - Past Surgical History Surgical History: orthopedic, other (Right knee arthroplasty in March 2017 ) - Social History Smoking Status: Never smoker Smokeless Tobacco Status: No Alcohol use: none Drug use: other - Family History Grandmother Race: Living Status: Hx Family Cardiac Disorders: Yes Hx Family Cancer: Yes (COLON) Hx Family Endocrine Disorder: Yes (DM) Medications and Allergies Buprenorphine HCl/Naloxone HCl [Suboxone 8 mg-2 mg Sl Film] 1.5 film SL DAILY [History] Meloxicam [Mobic] 15 mg PO DAILY #30 tablet 03/27/17 [Rx] Gabapentin [Neurontin] 600 mg PO TID 09/03/17 [History] Naproxen Sodium [Aleve] 440 mg PO BID 09/03/17 [History] 3 Allergy/AdvReac Type Severity Reaction Status Date / Time No Known Allergies Allergy Verified 09/03/17 07:39 All Systems Reviewed: A 10-system review of systems was performed and is negative for pertinent findings except as documented above in the HPI. Physical Exam - Constitutional Vitals: Temp Pulse Resp BP Pulse Ox 98.5 F 73 14 105/69 96 09/04/17 07:06 09/04/17 07:06 09/04/17 07:06 09/04/17 07:06 09/04/17 07:06 Results - Labs Result Diagrams: 09/04/17 03:40 09/04/17 03:40 Labs: Abnormal lab results WBC 3.1 K/mcL (4.3-11.1) L 09/04/17 03:40 Hgb 10.9 g/dL (11.5-15.4) L D 09/04/17 03:40 Hct 33.8 % (35.3-44.9) L 09/04/17 03:40 MCH 27.3 pg (28.0-33.3) L 09/04/17 03:40 Neutrophils # 1.2 K/mcL (1.6-8.9) L 09/04/17 03:40 ESR 25 mm/hr (0-15) H 09/03/17 08:35 Glucose 119 mg/dL (70-99) H 09/04/17 03:40 Magnesium 1.4 mg/dL (1.6-2.6) L 09/03/17 12:17 C-Reactive Protein 6 mg/L (Less than 5) H 09/04/17 03:40 Albumin 3.0 g/dL (3.5-5.0) L 09/04/17 03:40 Albumin/Globulin Ratio 1.0 (1.1-2.2) L 09/04/17 03:40 LDL Cholesterol, Calc 101 mg/dL (0-99) H 09/04/17 03:40 Ur Specific [place] > 1.030 (1.010-1.025) H 09/03/17 10:30 H & H 09/04/17 Range/Units 03:40 Hgb 10.9 L D (11.5-15.4) g/dL Hct 33.8 L (35.3-44.9) % All other labs normal. Consult Discharge Plan - Plan Referrals: NONE,PCP [Primary Care Provider] -
[2017-09-04] MEDS: Gabapentin 300 MG CAPSULE PO SCH (07:54)
[2017-09-04] MEDS ORDERED: NON-FORMULARY MEDICATION 1 EACH EACH (Buprenorphine Hcl/Naloxone Hcl [Suboxone 8 Mg-2 Mg S SL SCH (09:00)
[2017-09-04 12:22] VITALS: BP 99/55
[2017-09-04] MEDS ORDERED: FLUARIX QUAD 2017-18 36MOS UP/PF 0.5 ML SYRINGE IM ONE (12:29)
--- NOTE | 2017-09-04 13:18 | Discharge Summary ---
Date of Encounter: 09/04/17 Time of Encounter: 09:30 - Discharge Diagnosis (1) Knee effusion Priority: Primary Status: Acute Qualifiers: Laterality: right Qualified Code(s): M25.461 - Effusion, right knee (2) Asthma Priority: Secondary Status: Chronic Qualifiers: Asthma severity: mild Asthma persistence: intermittent Asthma complication type: uncomplicated Qualified Code(s): J45.20 - Mild intermittent asthma, uncomplicated (3) Chronic pain Priority: Secondary Status: Chronic Qualifiers: Chronic pain type: other chronic pain Qualified Code(s): G89.29 - Other chronic pain - Discharge Medications Home Medications: Buprenorphine HCl/Naloxone HCl [Suboxone 8 mg-2 mg Sl Film] 1.5 film SL DAILY [History] Meloxicam [Mobic] 15 mg PO DAILY #30 tablet 03/27/17 [Rx] Gabapentin [Neurontin] 600 mg PO TID 09/03/17 [History] Allergies/Adverse Reactions: 3 Allergy/AdvReac Type Severity Reaction Status Date / Time No Known Allergies Allergy Verified 09/03/17 07:39 Procedures/tests Complete & Pending: Procedures Performed prior 72 hours Category Date Time Status EKG [ECG 12 lead ECG] [ECG] Stat Y 09/03/17 15:36 Ordered EV venous imaging LE RT Routine Y 09/04/17 10:04 Completed Date of admission: 09/03/17 10:40 Primary care physician: PCP NONE Consults: 09/03/17 11:43 Consult to Physical Therapy [CONS] Routine Comment: Evaluate, develop and implement POC Reason for Consult: Patient experiencing difficulty w/ambulation d/t right knee swelling and pain from cellulitis. Hx of right knee replacement. Please assess patient for strength, stability, safety, ambulation, and assistive needs for post- discharge planning. 09/03/17 11:44 Consult to Occupational Therapy [CONS] Routine Comment: Evaluate, develop and implement POC Reason for Consult: Patient experiencing difficulty w/ambulation d/t right knee swelling and pain from cellulitis. Hx of right knee replacement. Please assess patient for strength, stability, safety, ambulation, and assistive needs for post- discharge planning. 09/03/17 12:51 Consult to Push Bench Operator Helper [CONS] Routine Reason for SW Consult: DISCHARGE PLANNING Discharging clinician: John Yap Anticipated date of discharge: 09/04/17 - Patient Status Disposition: Home, Self-Care Condition: Good Functional capacity at discharge: independent ambulation Overall status at discharge: patient is progressing back to baseline - Discharge Instructions Follow Up With: NONE,PCP [Primary Care Provider] - Additional Instructions: IF SYMPTOMS WORSEN, CALL 'S OFFICE [phone], CALL YOUR PRIMARY CARE PROVIDER OR GO TO THE NEAREST EMERGENCY ROOM. - Diet and Activity Activity: increase activity as tolerated Diet: advance to your usual diet Hospital course: Ms. Echeverria is a 37 year old female with hx of total knee replacement presented to ED with increased pain and swelling. She was evaluated and due to concern for infection she was admitted. Ms Echeverria was admitted to [facility]. She was started on IV abx. She had no new acute issues overnight. In the morning of 09/04 she was evaluated by orthopedics who felt this was postoperative changes. It was not felt to be an infection. She had duplex which was negative for DVT. Orthopedics recommended discharge home and outpatient follow up. At the time of admission there was concern for infection therefore she was admitted full inpatient. She has been cleared for discharge at this time. - Time Spent with Patient Total time spent providing and/or coordinating discharge services: 28min - Constitutional Vitals: Temp Pulse Resp BP Pulse Ox 98.0 F 73 14 99/55 94 09/04/17 12:21 09/04/17 12:21 09/04/17 12:21 09/04/17 12:21 09/04/17 12:21 General appearance: Present: cooperative, A&O X 3, pleasant, obese, answers questions appropriately - Head Head exam: Present: normocephalic - Eye Eye exam: Present: conjuntiva pink - ENT ENT exam: Present: mucous membranes dry - Respiratory Respiratory exam: Present: CTAB. Absent: rhonchi, wheezes - Cardiovascular Cardiovascular exam: Present: RRR. Absent: tachycardia - GI/Abdominal GI/Abdominal exam: Present: soft. Absent: tenderness - Extremities Exam Extremities exam: Present: warm - Neurological Exam Neurological exam: Present: alert, oriented X3, no focal deficits
--- NOTE | 2017-09-05 16:59 | Electrocardiograph Report ---
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
== END 2017-09-04 13:58 | disposition home or self-care (01) ==
LOC: 3NENU 07:24 → EMEROO 07:24 → SUATTDRO 10:40 → 3NENU 11:47
PROVIDERS: ADMIT Hospitalist; ATTEND Internal Medicine

== ENCOUNTER 2019-06-16 14:13 | Observation (INO) ==
[2019-06-16 15:47] LABS: Basophils % 0.3 %; Eosinophils # 0.2 K/mcL (0.0-0.6); Eosinophils % 2.7 %; Hemoglobin 10.4 g/dL (11.5-15.4); Immature Granulocytes % 0.2 % (0-4); Lymphocytes # 1.5 K/mcL (0.6-4.6); Lymphocytes % 24.7 %; Mean Corpuscular HGB Conc 32.5 g/dL (31.6-35.5); Mean Corpuscular Volume 89.1 fL (83.0-100.0); Mean Platelet Volume 9.6 fL (9.4-12.4); Monocytes # 0.7 K/mcL (0.0-1.3); Monocytes % 11.3 %; Neutrophils # 3.6 K/mcL (1.6-8.9); Platelet Count 190 K/mcL (140-400); Red Blood Count 3.59 M/mcL (3.82-4.97); Red Cell Distribution Width 13.5 % (11.5-14.5); Segmented Neutrophils % 60.8 %
[2019-06-16 16:09] LABS: BUN/Creatinine Ratio 11 (6-26); Blood Urea Nitrogen 7 mg/dL (6-20); C-Reactive Protein 32 mg/L (Less than 10); Calcium 8.8 mg/dL (8.6-10.3); Carbon Dioxide 29 mEq/L (23-29); Chloride 99 mEq/L (98-107); Glucose 110 mg/dL (70-105); Osmolality,Calculated 281 (280-300); Potassium 4.3 mEq/L (3.5-5.1); Sodium 136 mEq/L (136-145); eGFR For African Americans > 60 (> 60); eGFR For Non-African Americans > 60 (> 60)
[2019-06-16] MEDS ORDERED: Isovue-370 500 ML BOTTLE IVP ONE (17:27)
[2019-06-16] MEDS ORDERED: Ketorolac 30 MG/ML VIAL IVP PRN (19:43)
[2019-06-16] MEDS ORDERED: Ringers Solution, Lactated 1,000 ML IVC SCH (19:45)
[2019-06-16] MEDS: hydrOXYzine pamoate 25 MG CAPSULE PO SCH (21:03)
[2019-06-16 23:32] LABS: Amphetamine Screen,Urine Negative ng/mL (Cutoff=1000); Barbiturate Screen,Urine Negative ng/mL (Cutoff=200); Benzodiazepines Screen,Urine Negative ng/mL (Cutoff=200); Cannabinoid Screen,Urine Positive ng/mL (Cutoff = 50); Cocaine Screen,Urine Negative ng/mL (Cutoff= 300); Opiate Screen,Urine Negative ng/mL (Cutoff=300); Phencyclidine Screen,Urine Negative ng/mL (Cutoff=25)
[2019-06-17 01:53] LABS: Basophils % 0.4 %; Eosinophils # 0.2 K/mcL (0.0-0.6); Eosinophils % 4.3 %; Hematocrit 32.1 % (35.3-44.9); Hemoglobin 10.4 g/dL (11.5-15.4); Immature Granulocytes % 0.2 % (0-4); Lymphocytes # 1.9 K/mcL (0.6-4.6); Lymphocytes % 41.5 %; Mean Corpuscular HGB Conc 32.4 g/dL (31.6-35.5); Mean Corpuscular Hemoglobin 29.1 pg (28.0-33.3); Mean Corpuscular Volume 89.7 fL (83.0-100.0); Mean Platelet Volume 10.2 fL (9.4-12.4); Monocytes # 0.5 K/mcL (0.0-1.3); Monocytes % 11.2 %; Platelet Count 176 K/mcL (140-400); Red Blood Count 3.58 M/mcL (3.82-4.97); Red Cell Distribution Width 13.6 % (11.5-14.5); Segmented Neutrophils % 42.4 %; White Blood Count 4.6 K/mcL (4.3-11.1)
[2019-06-17 02:01] LABS: Prothrombin Time 11.7 Seconds (9.4-12.1)
[2019-06-17 02:04] LABS: Activated Partial Thrombo Time 29.7 Seconds (26.0-36.0)
[2019-06-17 02:11] LABS: BUN/Creatinine Ratio 13 (6-26); Blood Urea Nitrogen 7 mg/dL (6-20); Calcium 8.5 mg/dL (8.6-10.3); Carbon Dioxide 27 mEq/L (23-29); Chloride 104 mEq/L (98-107); Glucose 119 mg/dL (70-105); Osmolality,Calculated 283 (280-300); Sodium 137 mEq/L (136-145); eGFR For African Americans > 60 (> 60); eGFR For Non-African Americans > 60 (> 60)
[2019-06-17] MEDS: *HR* Heparin 5,000 UNIT/ML VIAL SQ SCH ×2 (05:38→17:45)
[2019-06-17] MEDS: Gabapentin 300 MG CAPSULE PO SCH (08:01)
[2019-06-17] MEDS: hydrOXYzine pamoate 25 MG CAPSULE PO SCH (20:40)
[2019-06-17] MEDS: Acetaminophen 325 MG TABLET PO PRN (22:45)
[2019-06-18 04:22] LABS: Basophils % 0.9 %; Eosinophils # 0.3 K/mcL (0.0-0.6); Eosinophils % 7.8 %; Hemoglobin 10.2 g/dL (11.5-15.4); Lymphocytes # 1.8 K/mcL (0.6-4.6); Lymphocytes % 50.4 %; Mean Corpuscular HGB Conc 31.9 g/dL (31.6-35.5); Mean Corpuscular Hemoglobin 29.2 pg (28.0-33.3); Mean Corpuscular Volume 91.7 fL (83.0-100.0); Monocytes # 0.4 K/mcL (0.0-1.3); Monocytes % 10.7 %; Neutrophils # 1.1 K/mcL (1.6-8.9); Platelet Count 165 K/mcL (140-400); Red Blood Count 3.49 M/mcL (3.82-4.97); Red Cell Distribution Width 13.4 % (11.5-14.5); Segmented Neutrophils % 30.2 %; White Blood Count 3.5 K/mcL (4.3-11.1)
[2019-06-18 04:37] LABS: BUN/Creatinine Ratio 13 (6-26); Blood Urea Nitrogen 9 mg/dL (6-20); Carbon Dioxide 29 mEq/L (23-29); Chloride 107 mEq/L (98-107); Glucose 98 mg/dL (70-105); Osmolality,Calculated 289 (280-300); Potassium 4.5 mEq/L (3.5-5.1); Sodium 140 mEq/L (136-145); eGFR For African Americans > 60 (> 60); eGFR For Non-African Americans > 60 (> 60)
[2019-06-18] MEDS: *HR* Heparin 5,000 UNIT/ML VIAL SQ SCH ×2 (05:05→17:16)
[2019-06-18] MEDS: Gabapentin 300 MG CAPSULE PO SCH (07:37)
[2019-06-18] MEDS: Acetaminophen 325 MG TABLET PO PRN (17:16)
[2019-06-18] MEDS: hydrOXYzine pamoate 25 MG CAPSULE PO SCH (23:19)
[2019-06-19] MEDS: *HR* Heparin 5,000 UNIT/ML VIAL SQ SCH (06:17)
[2019-06-19] MEDS: Acetaminophen 325 MG TABLET PO PRN ×2 (06:18→12:38)
[2019-06-19 06:43] LABS: Basophils % 0.8 %; Eosinophils # 0.3 K/mcL (0.0-0.6); Eosinophils % 7.7 %; Hemoglobin 10.9 g/dL (11.5-15.4); Lymphocytes # 1.9 K/mcL (0.6-4.6); Lymphocytes % 50.8 %; Mean Corpuscular HGB Conc 32.1 g/dL (31.6-35.5); Mean Corpuscular Hemoglobin 28.8 pg (28.0-33.3); Mean Corpuscular Volume 89.7 fL (83.0-100.0); Mean Platelet Volume 9.9 fL (9.4-12.4); Monocytes # 0.3 K/mcL (0.0-1.3); Monocytes % 8.5 %; Neutrophils # 1.2 K/mcL (1.6-8.9); Platelet Count 188 K/mcL (140-400); Red Blood Count 3.79 M/mcL (3.82-4.97); Red Cell Distribution Width 13.3 % (11.5-14.5); Segmented Neutrophils % 32.2 %; White Blood Count 3.6 K/mcL (4.3-11.1)
[2019-06-19] MEDS ORDERED: Penicillin G Potassium 5,000,000 UNIT in 0.9 % Sodium Chloride Mini Bag 100 ML IVPB ONE ×2 (06:48→10:00)
[2019-06-19 07:02] LABS: BUN/Creatinine Ratio 13 (6-26); Blood Urea Nitrogen 9 mg/dL (6-20); Calcium 9.6 mg/dL (8.6-10.3); Carbon Dioxide 29 mEq/L (23-29); Chloride 104 mEq/L (98-107); Glucose 95 mg/dL (70-105); Osmolality,Calculated 292 (280-300); Sodium 142 mEq/L (136-145); eGFR For African Americans > 60 (> 60); eGFR For Non-African Americans > 60 (> 60)
[2019-06-19] MEDS: Gabapentin 300 MG CAPSULE PO SCH (09:52)
[2019-06-19 15:17] VITALS: BP 106/70
[2019-06-19] MEDS ORDERED: Aminoglycoside Consult 1 EACH MC ONE (16:50)
== END 2019-06-19 16:51 | disposition home or self-care (01) ==
LOC: EMEROOARM 14:13 → 3NENU 14:13
PROVIDERS: ADMIT Internal Medicine; ATTEND Internal Medicine